=== PATIENT | male | born 1990 | race Caucasian/White ===

== ENCOUNTER 2020-12-20 00:52 | Emergency (ER) | payer MEDICAID ==
[~2020-12-20] VITALS: Ht 172.7 cm; Wt 81.0 kg
[2020-12-20 01:13] VITALS: BP 133/84
== END 2020-12-20 01:26 | disposition home or self-care (01) ==
LOC: ER 00:52
DX: S40.851A Superficial foreign body of right upper arm, initial encounter (principal); Y35.833A Legal intervention involving a conducted energy device, suspect injured, initial encounter; Y93.89 Activity, other specified; Y92.520 Airport as the place of occurrence of the external cause; Y99.8 Other external cause status
CPT/HCPCS: 99284; Z7610

== ENCOUNTER 2025-04-23 18:44 | Emergency (ER) | payer MEDICAID, OTHER ==
[~2025-04-23] VITALS: Ht 175.3 cm; Wt 73.0 kg
[~2025-04-23 18:44] MED LIST: AMOX1TAB16 MT; SULF1TAB48 MT
[2025-04-23 19:54] VITALS: O2SAT 99
[2025-04-23] MEDS: KETOROLAC 30MG/ML VIAL IM ONE (20:41)
[2025-04-23] MEDS ORDERED: LIDO-53 TP (20:54)
[2025-04-23] MEDS ORDERED: NAPR-1176 MT (20:54)
[2025-04-23 21:55] VITALS: BP 117/68; PULSE 90; RESP 17; TEMP 36.8; O2SAT 100
== END 2025-04-23 21:55 | disposition home or self-care (01) ==
LOC: ER 18:44
DX: M79.602 Pain in left arm (principal); F15.90 Other stimulant use, unspecified, uncomplicated
CPT/HCPCS: 73130; 29125; 96372; 99283; J1885; Z7610

== ENCOUNTER 2025-04-24 11:13 | Emergency (ER) | payer OTHER ==
[~2025-04-24] VITALS: Ht 175.3 cm; Wt 73.0 kg
[~2025-04-24 11:13] MED LIST changes: +LIDO-53 TP; +NAPR-1176 MT
[2025-04-24 11:15] VITALS: O2SAT 100
[2025-04-24 11:16] VITALS: BP 109/76; PULSE 84; RESP 18; TEMP 37.1; O2SAT 100
[2025-04-24 14:31] LABS: BASOPHILS % 0.1 % (0.0-2.0); EOSINOPHILS % 0.2 % (0.0-5.0); HEMATOCRIT. 38.3 % (42.0-52.0); HEMOGLOBIN. 12.8 g/dL (14.0-18.0); LYMPHOCYTES % 12.5 % (20.0-50.0); MEAN PLATELET VOLUME 6.5 fl (7.4-10.4); MONOCYTES % 6.9 % (2.0-8.0); NEUTROPHILS % 80.3 % (40.0-76.0); PLATELET 261 x1000/uL (130-400); RED BLOOD CELL COUNT 4.51 mill/uL (4.7-6.1); RED CELL DISTRIBUTION WIDTH 13.8 % (11.6-14.6)
[2025-04-24 14:47] LABS: TROPONIN I HIGH SENSITIVITY < 4 ng/L (3.0-53)
[2025-04-24 14:48] LABS: CREATININE 0.7 mg/dL (0.6-1.3); UREA NITROGEN BLOOD 12 mg/dL (9-23)
[2025-04-24 14:50] LABS: ASPARTATE AMINOTRANSFERASE 12 IU/L (<34); BILIRUBIN DIRECT 0.4 mg/dL (<=3.0); BILIRUBIN TOTAL 1.1 mg/dL (0.1-1.0); PROTEIN TOTAL 6.8 g/dL (6.0-8.3)
== END 2025-04-24 15:34 | disposition home or self-care (01) ==
LOC: ER 11:13
DX: R07.9 Chest pain, unspecified (principal); M79.10 Myalgia, unspecified site; F15.90 Other stimulant use, unspecified, uncomplicated
CPT/HCPCS: 36415; 71045; 80048; 80076; 82550; 84484; 85025; 93005; 99285